=== PATIENT | female | born 1950 | race Caucasian/White ===

== ENCOUNTER 2022-05-31 05:56 | Outpatient (CLI) | payer MEDICARE, MEDICAID ==
[~2022-05-31] VITALS: Ht 154.9 cm; Wt 59.4 kg
[2022-05-31] MEDS ORDERED: NF-VITD400 PO (08:35)
[2022-05-31] MEDS ORDERED: METF-397 PO (08:35)
[2022-05-31] MEDS ORDERED: ATOR20TA66 PO (08:35)
[2022-05-31] MEDS ORDERED: NF-BISOP5 PO (08:35)
[2022-05-31] MEDS ORDERED: ASCO100024 PO (08:35)
[2022-05-31] MEDS ORDERED: GARL500C2 PO (08:35)
[2022-05-31] MEDS ORDERED: CALC-823 PO (08:35)
== END 2022-05-31 08:36 | disposition home or self-care (01) ==
LOC: PREOP 05:56
PROVIDERS: ATTEND Surgery
DX: Z01.818 Encounter for other preprocedural examination (principal)

== ENCOUNTER 2022-06-05 10:26 | Day surgery (SDC) | payer MEDICARE, MEDICAID ==
[~2022-06-05] VITALS: Ht 154.9 cm; Wt 59.4 kg
[~2022-06-05 10:26] MED LIST: ASCO100024 PO; ATOR20TA66 PO; CALC-823 PO; GARL500C2 PO; METF-397 PO; NF-BISOP5 PO; NF-VITD400 PO
[2022-06-05] MEDS ORDERED: LACTATED RINGERS 1,000 ML IV STA (10:29)
[2022-06-05 10:55] VITALS: BP 123/54
--- NOTE | 2022-06-05 11:20 | Progress Note-Pre Operative ---
Pre-Operative Progress Note Date of Available H&P: May 25, 2022 Date H&P Reviewed: Jun 05, 2022 Time H&P Reviewed: 11:17 History & Physical: H&P Reviewed, Patient Examed, No changes noted Pre-Operative Diagnosis: +FERNANDO Jason DO Jun 05, 2022 11:20
[2022-06-05] MEDS ORDERED: PROPOFOL INJECTION 50 ML IV ONE (12:46)
[2022-06-05 13:30] VITALS: BP 114/56
[2022-06-05 13:35] VITALS: BP 112/55
--- NOTE | 2022-06-05 13:56 | Anesthesia-General Post-Op ---
MAC Patient Condition Mental Status/LOC: Same as Preop Cardiovascular: Satisfactory Nausea/Vomiting: Absent Respiratory: Satisfactory Pain: Controlled Complications: Absent Post Op Complications Complications None Follow Up Care/Instructions Patient Instructions None needed. Anesthesiology Discharge Order Discharge Order Patient is doing well, no complaints, stable vital signs, no apparent adverse anesthesia problems. No complications reported per nursing. MARLON PELAEZ CRNA Jun 05, 2022 13:56
--- NOTE | 2022-06-05 13:59 | Progress Note-Post Operative ---
Post-Operative Progess Note Surgeon (s)/Mantel Craftsman (s) Surgeon FERNANDO VINCENT DO Mantel Craftsman: Johann Castillo, MSIV Pre-Operative Diagnosis +Cologuard Post-Operative Diagnosis Polyps diverticula int hemorrhoids Procedure & Operative Findings Date of Procedure 06/05/22 Procedure Performed/Findings Colonoscopy with hot snare polypectomy PROCEDURE NOTE: After informed consent was obtained, the patient was brought to the endoscopy suite, placed in bed in left lateral decubitus position. She was administered IV sedation by the MATERIAL HANDLER LOADER who then monitored her vitals the entire time, heart rate, blood pressure and pulse ox and the scope was inserted, pushed all the way to about 120 cm and pushed into what looked like an anastomosis between colon and small bowel, took a picture of this. Then slowly withdrew the scope insufflating to look circumferentially at the garcia starting from the anastomosis and up the ascending colon to the hepatic flexure, then down the transverse colon, splenic flexure and into the descending colon. Here I found a small polyp and elected to remove it with hot snare. Continued down into the sigmoid; where I found a larger polyp. I removed this with hot snare, but then had to suction this up to the scope and pull the scoped completely out. Placed the scope back into the same point and then pulled back into the rectum. Here I found another large polyp; which also needed to be snared, suctioned up to the scope and then removed with scope. Placed the scope back into the rectal vault and retroflexed the scope. Took a picture of the internal hemorrhoids. The patient tolerated the procedure. She was recovered in endoscopy suite. Recommended for repeat colonoscopy in 1 years. Anesthesia Type IV sedation by MATERIAL HANDLER LOADER Estimated Blood Loss Estimated blood loss (mL): scant Specimens/Packing Specimens Removed desc colon polyp sigmoid polyp rectal polyp FERNANDO VINCENT DO Jun 05, 2022 13:59
--- NOTE | 2022-06-05 14:00 | Endoscopy Discharge Instruct ---
Endo Procedure/Findings Findings 1.: Polyp 2.: Diverticulosis 3.: Internal Hemorrhoids Discharge Instructions - Activity: You might feel a little sleepy until tomorrow. This is due to the medicine you received to relax you. Until tomorrow, you should: NOT drive a car, operate machinery or power tools. NOT drink any alcoholic beverages. NOT make any important decisions or sign importortant papers. Do not return to work until tomorrow, unless otherwise instructed. Resume previous activities tomorrow. Diet: Start by taking liquids. If you tolerate liquids, advance to solid food. 1.: Colonoscopy in 1 year Notify Physician - If you experience excessive bleeding, unusual abdominal pain, fever, or chest pain, contact your doctor immediately. FERNANDO VINCENT DO Jun 05, 2022 14:00
[2022-06-05 14:10] VITALS: BP 136/62
[2022-06-05 14:15] VITALS: BP 136/62
== END 2022-06-05 12:15 | disposition home or self-care (01) ==
LOC: ENDO 10:26
PROVIDERS: ATTEND Surgery
DX: D12.5 Benign neoplasm of sigmoid colon (principal); D12.8 Benign neoplasm of rectum; K57.30 Diverticulosis of large intestine without perforation or abscess without bleeding; K64.8 Other hemorrhoids; F17.210 Nicotine dependence, cigarettes, uncomplicated

== ENCOUNTER → 2022-10-02 | Outpatient (CLI) | payer MEDICARE, MEDICAID ==
--- NOTE | 2022-10-02 13:05 | Diagnostic Imaging Report ---
PROCEDURE: Pelvic comp/transvaginal sonogram. TECHNIQUE: Complete transabdominal and transvaginal pelvic ultrasound was performed. In addition, limited pelvic Doppler was performed. INDICATION: Right lower quadrant pain. Uterus is anteverted measuring 5.8 x 2.1 x 3.5 cm. Endometrium is 2 mm in thickness. No myometrial mass is detected. The ovaries cannot be visualized. No adnexal mass or free pelvic fluid is detected. IMPRESSION: Nonvisualized ovaries. The study is otherwise unremarkable. Dictated by: Dictated on workstation # [id number]
== END ==
LOC: RAD 11:33
PROVIDERS: ATTEND Nurse Practitioner Women's Health
DX: R10.31 Right lower quadrant pain (principal)
CPT/HCPCS: 76830; 76856

== ENCOUNTER 2023-06-29 08:03 | Outpatient (CLI) | payer MEDICARE, MEDICAID ==
[~2023-06-29] VITALS: Ht 154.9 cm; Wt 56.7 kg
[2023-07-02] MEDS ORDERED: IODI150T PO (13:07)
[2023-07-02] MEDS ORDERED: CHOL12509 PO (13:07)
[2023-07-02] MEDS ORDERED: ZINC220T3 PO (13:07)
[2023-07-02] MEDS ORDERED: CALC-822 PO (13:07)
[2023-07-02] MEDS ORDERED: MAGN400C PO (13:07)
[2023-07-02] MEDS ORDERED: POTA99TA25 PO (13:07)
[2023-07-02] MEDS ORDERED: PHYT100T PO (13:07)
[2023-07-02] MEDS ORDERED: PYRI50TA PO (13:07)
[2023-07-02] MEDS ORDERED: SALM1CAP6 PO (13:07)
[2023-07-02] MEDS ORDERED: ACET-11 PO (13:07)
== END 2023-07-02 13:10 | disposition home or self-care (01) ==
LOC: PREOP 08:03
PROVIDERS: ATTEND Surgery
DX: Z01.818 Encounter for other preprocedural examination (principal)